=== PATIENT | male | born 1965 | race African-American/Black ===

== ENCOUNTER 2016-11-18 14:26 | Emergency (ER) | payer OTHER ==
[~2016-11-18] VITALS: Ht 175.3 cm; Wt 74.8 kg
[2016-11-18] MEDS ORDERED: Morgan Lens TOPIC ONE (14:45)
[2016-11-18] MEDS ORDERED: Fluorescein Strips RIGHT EYE ONE (14:45)
[2016-11-18] MEDS ORDERED: Tetracaine 0.5% Opth Soln RIGHT EYE ONE (14:45)
[2016-11-18] MEDS ORDERED: TYLENOL EXTRA500 MG ORAL (16:32)
[2016-11-18] MEDS ORDERED: OCUFLOX5 ML OP (16:32)
--- NOTE | 2016-11-18 16:32 | Emergency Room Report ---
History of Present Illness General Chief Complaint: Eye Problems Source: Patient Present Illness HPI 51 YO Male presents to the ED c/o : Right eye pain 3/10 in severity described as burning with a scratching sensation, redness, and increased tearing x 1 day. Pt was at work when a hose blew unknown substance into his eye, pt. reports fb sensation, redness and increased lacrimation. pt. report blurry vision due to excessive tearing, denies loss of vision, seeing spots, floaters, or halos around lights. denies contact lens use. pt. states he rinsed his eye promptly. Denies CP, Palpitations, LOC, AMS, dizziness, Changes in Vision, Sensation, paresthesias, or a sudden severe headache. Allergies: Coded Allergies: No Known Allergies (Unverified , 11/18/16) Patient History Past Medical History: see triage record Past Surgical History: none Pertinent Family History: none Reviewed Nursing Documentation: PMH: Agreed, PSxH: Agreed Nursing Documentation-PMH Past Medical History: No Stated History Review of Systems All Other Systems: negative except mentioned in HPI Physical Exam Vital Signs Date Time Temp Pulse Resp B/P Pulse Ox O2 Delivery O2 Flow Rate FiO2 11/18/16 14:36 98.2 77 18 152/76 97 Room Air Sp02 EP Interpretation: reviewed, normal General Appearance: no apparent distress, alert, GCS 15, non-toxic Head: normocephalic, atraumatic Eyes: right eye fluoroscene uptake - uptake in both a linear pattern in the 3 o 'clock position, and in a diffuse pattern in the noon position., bilateral eye PERRL, bilateral eye normal inspection, bilateral eye visual acuity ENT: hearing grossly normal, normal pharynx, no angioedema, normal voice Neck: full range of motion, supple/symm/no masses Respiratory: lungs clear, normal breath sounds, speaking full sentences Cardiovascular #1: regular rate, rhythm, no edema Musculoskeletal: back normal, gait/station normal, normal range of motion, non- tender Neurologic: alert, oriented x3, responsive, motor strength/tone normal, sensory intact, speech normal Psychiatric: judgement/insight normal, memory normal, mood/affect normal Skin: normal color, no rash, warm/dry, well hydrated Medical Decision Making PA Attestation Dr. Hammonds is my supervising Physician whom patient management has been discussed with. Diagnostic Impression: Primary Impression: Corneal abrasion Qualified Codes: S05.01XA - Injury of conjunctiva and corneal abrasion without foreign body, right eye, initial encounter Additional Impression: Chemical conjunctivitis of right eye ER Course 51 YO Male presents to the ED c/o : Right eye pain 3/10 in severity described as burning with a scratching sensation, redness, and increased tearing x 1 day. Pt was at work when a hose blew unknown substance into his eye, pt. reports fb sensation, redness and increased lacrimation. pt. report blurry vision due to excessive tearing, denies loss of vision, seeing spots, floaters, or halos around lights. denies contact lens use. pt. states he rinsed his eye promptly. Denies CP, Palpitations, LOC, AMS, dizziness, Changes in Vision, Sensation, paresthesias, or a sudden severe headache. Ddx considered but are not limited to: corneal abrasion, acute glaucoma, globe rupture, FB, Corneal Ulcer, conjunctivitis. Iridis Vital signs: are WNL, pt. is afebrile H&PE are most consistent with: possible chemical conjunctivitis of the right eye , will r/o abrasion, or fb. ORDERS: -Tetracaine and Fluorescein Stain of the right eye: Increase fluorescein uptake in both a linear pattern in the 3 o' clock position, and in a diffuse pattern in the noon position. there is no involvement of the iris or pupil. Negative Juliette sign. Pt. had positive relief of pain with tetracaine drops. there was negative evidence of Fb, deep ulcer, or rupture. ED INTERVENTIONS: none at this time. DISCHARGE: At this time pt. is stable for d/c to home. Will provide printed patient care instructions, and any necessary prescriptions. Care plan and follow up instructions have been discussed with the patient prior to discharge. . Last Vital Signs Date Time Temp Pulse Resp B/P Pulse Ox O2 Delivery O2 Flow Rate FiO2 11/18/16 14:36 98.2 77 18 152/76 97 Room Air Disposition: HOME, SELF-CARE Condition: Stable Scripts Acetaminophen* (TYLENOL EXTRA STRENGTH*) 500 Mg Tablet 500 MG ORAL Q6H, #20 TAB 0 Refills Prov: Diana [email or web address] 11/18/16 Ofloxacin (OCUFLOX) 5 Ml Drops 2 ML OP TID for 5 Days, #5 ML Prov: Diana Zuniga 11/18/16 Referrals: NOT CHOSEN IPA/MD,REFERRING (PCP) Patient Instructions: Chemical Conjunctivitis, Corneal Abrasion, [id number] Additional Instructions: Take medications as directed. Follow up with a ASSET COORDINATOR IN 48 hours to evaluate your eye. Call your insurance to have them give you manager professional development referal as follow up from ED recomended. other saez follow up with your PCP if your insurance requires you to do so. Return Promptly to the ED if new symptoms occur, or current symptoms become worse. - Please note that this Emergency Department Report was dictated using [employer] chief technology software, occasionally this can lead to erroneous entry secondary to interpretation by the dictation equipment. Diana Zuniga Nov 18, 2016 16:32
[2016-11-18 16:45] VITALS: BP 145/72
== END 2016-11-18 16:46 | disposition home or self-care (01) ==
LOC: EMR 15:12
DX: S05.01XA Injury of conjunctiva and corneal abrasion without foreign body, right eye, initial encounter (principal); X58.XXXA Exposure to other specified factors, initial encounter; H10.211 Acute toxic conjunctivitis, right eye
CPT/HCPCS: 65205; 99284